=== PATIENT | male | born 1950 | race Asian ===

== ENCOUNTER 2019-06-19 16:05 | Emergency (ER) | payer MEDICAID, OTHER ==
[2019-06-19 16:25] VITALS: BP 129/66
[2019-06-19] MEDS ORDERED: ACETAMINOPHEN 325 MG TAB PO ONE (17:15)
[2019-06-19] MEDS ORDERED: TETANUS-DIPTH-ACEL PERTUSSIS 0.5ML SYRG IM ONE (17:15)
== END 2019-06-19 18:17 | disposition home or self-care (01) ==
LOC: ER 16:13
DX: S00.93XA Contusion of unspecified part of head, initial encounter (principal); I10 Essential (primary) hypertension; W22.8XXA Striking against or struck by other objects, initial encounter; Y93.89 Activity, other specified; Y99.8 Other external cause status; Y92.89 Other specified places as the place of occurrence of the external cause
CPT/HCPCS: 70450; 70486; 90471; 90715

== ENCOUNTER 2019-10-05 11:25 | Inpatient (IN) | payer MEDICAID ==
[~2019-10-05] VITALS: Ht 172.7 cm; Wt 66.4 kg
[2019-10-05] MEDS ORDERED: SODIUM CHLORIDE 0.9% 1,000 ML IV ONE (12:19)
[2019-10-05 13:15] LABS: Basophils # (auto) 0.1 uL; Basophils % (auto) 1.3 % (0.0-2.0); Eosinophils # (auto) 0 uL; Eosinophils % (auto) 0.6 % (0.0-7.0); Hematocrit 47.3 % (41.0-53.0); Hemoglobin 16.2 g/dL (13.5-17.5); Lymphocytes # (auto) 1.6 uL; Lymphocytes % (auto) 25.3 % (10.0-50.0); Mean Corpuscular Hemoglobin 30.8 pg (28.0-32.0); Mean Corpuscular Hgb Conc. 34.1 g/dL (32.0-36.0); Mean Corpuscular Volume 90.2 fL (80.0-100.0); Monocytes # (auto) 0.4 uL; Monocytes % (auto) 7.1 % (0.0-12.0); Neutrophils # (auto) 4.1 uL; Neutrophils % (auto) 65.7 % (37.0-80.0); Nucleated Red Blood Cells % 0.1 %; Platelet Count (auto) 179 10^3/uL (140-450); Red Blood Cells 5.25 10^6/uL (4.5-5.90); Red Cell Distribution Width 13.8 % (11.8-14.3); White Blood Cell 6.2 10^3/uL (4.4-10.8)
[2019-10-05 13:27] LABS: Chloride 106 mmol/L (98-107); Potassium 3.9 mmol/L (3.5-5.1); Sodium 140 mmol/L (136-145)
[2019-10-05 13:35] LABS: Alanine Aminotransferase 18 U/L (16-61); Albumin 3.6 g/dL (3.4-5.0); Alkaline Phosphatase 73 U/L (45-117); Anion Gap 10 (5-15); Aspartate Aminotransferase 10 U/L (15-37); BUN/Creatinine Ratio 35.5; Bilirubin, Total 2.3 mg/dL (0.2-1.0); Blood Urea Nitrogen 33 mg/dL (7-18); Carbon Dioxide 24 mmol/L (21-32); GFR African American 103 mL/min; GFR Non-African American 85 mL/min; Glucose 132 mg/dL (74-106); Magnesium 2.2 mg/dL (1.6-2.6)
[2019-10-05] MEDS ORDERED: NITROGLYCERIN 0.4 MG SL TAB SL PRN (17:30)
[2019-10-05] MEDS ORDERED: SODIUM CHLORIDE 0.9% 500 ML IV ONE (17:30)
[2019-10-05] MEDS ORDERED: CLINIMIX PER PHARMACY 0 ML IV SCH (17:30)
[2019-10-05] MEDS ORDERED: MORPHINE SULF INJ 2 MG/ML SYRINGE 1ML IV PRN (17:30)
--- NOTE | 2019-10-05 17:30 | NUR ---
Telemetry admit from ER RACHANA,IN IDALIA admitted to [facility] unit after SBAR received. Patient oriented to JHONNY ROGERRN primary RN, unit, room, bed, and unit policies regarding patient care and visiting hours. Patient weighed by bedscale and encouraged to call if they need something. All questions and concerns addressed, patient and family verbalized understanding.
[2019-10-05] MEDS ORDERED: IOHEXOL 300 MG/ML 100ML BOTTLE IJ ONE (17:44)
[2019-10-05] MEDS: TAMSULOSIN HYDROCHLORIDE 0.4 MG CAP PO SCH (18:11)
[2019-10-05] MEDS ORDERED: TAMS0.4C36 PO (18:56)
[2019-10-05] MEDS ORDERED: RISP0.5T45 PO (18:56)
[2019-10-05] MEDS ORDERED: DONE5TAB31 PO (18:56)
[2019-10-05 19:07] VITALS: BP 140/63
[2019-10-05] MEDS: risperiDONE 1 MG TAB PO SCH (19:58)
[2019-10-05] MEDS: LORazepam 2MG/ML-1ML VIAL IV PRN (19:59)
[2019-10-05] MEDS ORDERED: DEXTROSE (50%) 50ML SYRG IV SCH (20:00)
[2019-10-05] MEDS: AMINO ACID INFUSION IN D10W 1,000 ML IV NR (20:35)
[2019-10-05] MEDS: SODIUM CHLORIDE 0.9% 1,000 ML IV SCH (20:35)
[2019-10-05 22:00] VITALS: BP 122/76
[2019-10-05] MEDS: FAMOTIDINE (10MG/ML) 2ML VL IV SCH (22:52)
[2019-10-05] MEDS: DONEPEZIL HYDROCHLORIDE 5 MG TAB PO SCH (22:53)
--- NOTE | 2019-10-05 23:36 | NUR ---
PIC TAKEN OF LEFT HIP PRESSURE ULCER
--- NOTE | 2019-10-06 00:18 | NUR ---
IV PULLED OUT IV PULLED OUT BY PT. catheter fully intact. Pressure dressing applied to site.
[2019-10-06] MEDS: ACCU-CHEK COMFORT CURVE STRIP VI SCH ×4 (00:21→18:16)
--- NOTE | 2019-10-06 02:38 | NUR ---
gave report to nevin marie. pt moved to room 246
--- NOTE | 2019-10-06 02:40 | NUR ---
Received patient from VIRGINIA Thorpe. Patient resting with eyes closed. No acute distress noted. Sitter at bedside.
[2019-10-06 05:00] VITALS: BP 134/79
[2019-10-06] MEDS: InsuLIN REG 1unit/0.01ml Soln (100units/ml) SC SCH ×4 (06:00→18:15)
--- NOTE | 2019-10-06 06:54 | NUR ---
Closing Note: No change in patient's status. Patient continues to refuse treatment. Sitter remains at bedside. No acute distress noted.
[2019-10-06 09:00] VITALS: BP 145/90
[2019-10-06 09:32] LABS: Basophils # (auto) 0 uL; Basophils % (auto) 0.9 % (0.0-2.0); Eosinophils # (auto) 0 uL; Eosinophils % (auto) 0.6 % (0.0-7.0); Hematocrit 43.1 % (41.0-53.0); Hemoglobin 15.2 g/dL (13.5-17.5); Lymphocytes # (auto) 0.8 uL; Lymphocytes % (auto) 15.3 % (10.0-50.0); Mean Corpuscular Hemoglobin 31.2 pg (28.0-32.0); Mean Corpuscular Hgb Conc. 35.2 g/dL (32.0-36.0); Mean Corpuscular Volume 88.5 fL (80.0-100.0); Monocytes # (auto) 0.3 uL; Monocytes % (auto) 5.5 % (0.0-12.0); Neutrophils # (auto) 4.2 uL; Neutrophils % (auto) 77.7 % (37.0-80.0); Nucleated Red Blood Cells % 0.1 %; Platelet Count (auto) 150 10^3/uL (140-450); Red Blood Cells 4.87 10^6/uL (4.5-5.90); Red Cell Distribution Width 13.9 % (11.8-14.3); White Blood Cell 5.4 10^3/uL (4.4-10.8)
--- NOTE | 2019-10-06 09:40 | NUR ---
FAMILY AT BEDSIDE. PT COOPERATING WITH CARE AT MOMENT, IV INSERTION TO RFA #20. RESUMED IV FLUIDS PER EMAR. ADMINISTERED MORNING MEDICATIONS. TOLERATED WELL. WOUND CARE NURSE EVALUATED LEFT HIP ABRASION. OPTI FOAM APPLIED.
[2019-10-06 09:49] LABS: Albumin 3.3 g/dL (3.4-5.0); Calcium 8.5 mg/dL (8.5-10.1); Magnesium 2.1 mg/dL (1.6-2.6); Potassium 3.7 mmol/L (3.5-5.1)
[2019-10-06 09:55] LABS: BUN/Creatinine Ratio 38.1; Bilirubin, Total 2.2 mg/dL (0.2-1.0); Phosphorus 3.3 mg/dL (2.5-4.90); Pre Albumin 18.8 mg/dL (20.0-40.0); Total Protein 6.4 g/dL (6.4-8.2)
[2019-10-06] MEDS: risperiDONE 1 MG TAB PO SCH (09:55)
[2019-10-06] MEDS: FAMOTIDINE (10MG/ML) 2ML VL IV SCH ×2 (09:55→22:03)
[2019-10-06] MEDS: SODIUM CHLORIDE 0.9% 1,000 ML IV SCH (09:56)
--- NOTE | 2019-10-06 10:00 | NUR ---
WOUND CARE NOTE: IN TO SEE PATIENT AT THIS TIME PER WOUND CARE CONSULT REQUEST. PATIENT ADMITTED TO [facility] WITH DIAGNOSIS OF GENERAL WEAKNESS. PATIENT HAS CURRENT BRENDA SCORE OF 14. PATIENT IS THIN, WEIGHING 61 KG. HE HAS VERY PROMINENT BONY PROMINENCES NOTED. ORDERED A P500 AIR MATTRESS PREVENTATIVE INTERVENTION. PATIENT TO BE PLACED, PENDING DELIVERY BY BELLA LU. PATIENT IS NOTED TO HAVE INTACT SKIN, NO OPEN WOUNDS NOTED. HE HAS AN OLD COLLAGEN SCAR TO THE LEFT HIP. WOUND PHOTO WAS TAKEN BY BEDSIDE NURSE AT TIME OF ADMIT FOR REFERENCE. NO OTHER SKIN INTEGRITY ISSUES NOTED. RECOMMEND: SKIN/WOUND CARE PLAN, DIETARY CONSULT FOR IMMOBILITY, FREQUENT TURN SCHEDULE Q 2 HOURS, PRN CONDITION PERMITS, WITH PRESSURE REDISTRIBUTION, USING PILLOWS/WEDGES, SPECIALTY AIR MATTRESS, BID/PRN APPLICATION WITH MOISTURE BARRIER CREAM, OPTIFOAM GENTLE SACRAL DRESSING PREVENTATIVE MEASURES, CONTINUED MONITORING BY WOUND CARE TEAM. Addendum: 10/06/19 at 1555 by Dayna Townsend RN Amended: Links added.
[2019-10-06 13:00] VITALS: BP 135/87
[2019-10-06] MEDS ORDERED: LORazepam 2MG/ML-1ML VIAL IV ONE (13:15)
--- NOTE | 2019-10-06 13:55 | NUR ---
Nutrition consult/assessment Notes please see attached link for complete assessment Est. Needs BW 61 [id number] kcal (25-30 kcal/kgBW), 61-73 gms pro (1.0-1.2 gms/kgBW). Will continue to monitor pertinent labs and reassess nutrient need prn Addendum: 10/06/19 at [address] Amended: Links added.
[2019-10-06] MEDS: LORazepam 2MG/ML-1ML VIAL IV PRN ×2 (15:56→23:30)
--- NOTE | 2019-10-06 15:56 | NUR ---
Rounding Covering for Juan David COLEMAN. Patient becoming agitated. Ativan IV as needed administered. Will continue care.
[2019-10-06 16:52] VITALS: BP 123/83
[2019-10-06] MEDS: TAMSULOSIN HYDROCHLORIDE 0.4 MG CAP PO SCH (18:15)
--- NOTE | 2019-10-06 19:05 | NUR ---
AIR MATTRESS DELIVERED AND IN USE AT THIS TIME.
--- NOTE | 2019-10-06 19:15 | NUR ---
RECEIVED PATIENT FROM DAY SHIFT RN. PATIENT RESTING IN BED. NO S/S OF DISTRESS AND PAIN NOTED. SITTER AT BEDSIDE. POC INSTRUCTED AND ENCOURAGED PATIENT TO CALL FOR EDUCATIONAL ASSISTANT TEACHER IF NEEDED. SPECIAL MATTRESS BED IN LOWEST POSITION WITH SIDE RAILS UP X 2. CALL CADET WITHIN REACH. ALARM ON. SITTER AT BEDSIDE FOR SAFETY. CONTINUE TO MONITOR FOR CHANGES Q1H AND PRN. Addendum: 10/06/19 at 2114 by Edinson Novak RN BLUE PHONE USED FOR THIS PATIENT.
[2019-10-06] MEDS ORDERED: CLINIMIX PER PHARMACY IV NR ×6 (20:00)
[2019-10-06] MEDS: AMINO ACID INFUSION IN D10W 1,000 ML IV NR (20:10)
[2019-10-06 22:00] VITALS: BP 133/86
[2019-10-06] MEDS ORDERED: risperiDONE 1 MG TAB PO SCH (22:00)
[2019-10-06] MEDS: DONEPEZIL HYDROCHLORIDE 5 MG TAB PO SCH (22:03)
--- NOTE | 2019-10-06 22:03 | NUR ---
SCHEDULED ORAL MEDICATION GIVEN ORDERED. PATIENT SWALLOWED WELL. NO S/S OF ASPIRATION NOTED. CONTINUE TO MONITOR.
--- NOTE | 2019-10-06 23:45 | NUR ---
PATIENT REALLY AGITATED AND TRYING TO REMOVE IV ACCESS, AND HITTING STAFF. MEDICATED PATIENT ORDERED, MITTENS ON. PATIENT STILL COMBATIVE. CALLED SON JR TO COME. CHARGE NURSE OFE AWARE. CONTINUE TO MONITOR.
[2019-10-07] MEDS: InsuLIN REG 1unit/0.01ml Soln (100units/ml) SC SCH ×4 (00:48→17:21)
[2019-10-07] MEDS: ACCU-CHEK COMFORT CURVE STRIP VI SCH ×4 (00:48→17:21)
--- NOTE | 2019-10-07 01:19 | NUR ---
ACCU-CHECK, BS 141. INSULIN GIVEN ORDERED.CONTINUE TO MONITOR.
[2019-10-07] MEDS: SODIUM CHLORIDE 0.9% 1,000 ML IV SCH ×2 (02:25→17:21)
--- NOTE | 2019-10-07 04:16 | NUR ---
PATIENT SLEEPING. NO S/S OF DISTRESS NOTED. CONTINUE CARE.
--- NOTE | 2019-10-07 05:00 | NUR ---
Patient Vielka, In [place] refused Vital Signs.
--- NOTE | 2019-10-07 05:37 | NUR ---
ACCU-CHECK, BS 141. INSULIN GIVEN ORDERED.CONTINUE TO MONITOR.
[2019-10-07] MEDS: LORazepam 2MG/ML-1ML VIAL IV PRN ×2 (07:11→15:25)
--- NOTE | 2019-10-07 07:17 | NUR ---
PATIENT AGITATED, COMBATIVE, AND TRYING TO REMOVE IV ACCESS, MEDICATED PATIENT ORDERED, CALLED SON JR TO COME IN NOW. CONTINUE TO MONITOR.
[2019-10-07] MEDS: FAMOTIDINE (10MG/ML) 2ML VL IV SCH ×2 (09:53→21:51)
[2019-10-07] MEDS: risperiDONE 1 MG TAB PO SCH (09:53)
[2019-10-07 12:28] LABS: Albumin 2.7 g/dL (3.4-5.0); Calcium 7.7 mg/dL (8.5-10.1); Magnesium 1.9 mg/dL (1.6-2.6); Potassium 3.4 mmol/L (3.5-5.1)
[2019-10-07 12:32] LABS: BUN/Creatinine Ratio 27.1; Bilirubin, Total 1.9 mg/dL (0.2-1.0); Total Protein 5.6 g/dL (6.4-8.2)
[2019-10-07] MEDS ORDERED: POTASSIUM PHOSP 22MEQ(15MMOLE) in NS 100 ML IV ONE (14:45)
--- NOTE | 2019-10-07 15:20 | NUR ---
Spoke with VIRGINIA Fall regarding PT evaluation orders. Pt is currently agitated and is not appropriate for PT eval at this time. We will attempt again tomorrow.
[2019-10-07 16:27] VITALS: BP 127/67
[2019-10-07 17:03] VITALS: BP 137/77
[2019-10-07] MEDS: TAMSULOSIN HYDROCHLORIDE 0.4 MG CAP PO SCH (17:40)
[2019-10-07] MEDS ORDERED: LORazepam 2MG/ML-1ML VIAL IV PRN (19:15)
--- NOTE | 2019-10-07 19:25 | NUR ---
MD EWING AT BEDSIDE
--- NOTE | 2019-10-07 19:30 | NUR ---
RECEIVED PATIENT FROM DAY SHIFT RN. PATIENT RESTING IN BED WITH MITTENS ON. NO S/S OF DISTRESS AND PAIN NOTED. FAMILY AT BEDSIDE. POC INSTRUCTED AND ENCOURAGED PATIENT TO CALL FOR CONSTRUCTION ACCOUNTANT IF NEEDED. SPECIAL MATTRESS BED IN LOWEST POSITION WITH SIDE RAILS UP X 2. CALL CADET WITHIN REACH. ALARM ON. SITTER AT BEDSIDE FOR SAFETY. CONTINUE TO MONITOR FOR CHANGES Q1H AND PRN.
--- NOTE | 2019-10-07 19:45 | NUR ---
PATIENT'S DAUGHTER JELLY CALLED. VERIFIED PASSWORD. ALL QUESTIONS ADDRESSED BY MD EWING. CONTINUE TO MONITOR.
[2019-10-07] MEDS ORDERED: CLINIMIX PER PHARMACY IV NR ×17 (20:00)
--- NOTE | 2019-10-07 21:57 | NUR ---
PATIENT AGITATED AGAIN, FAMILY CALM HIM DOWN. AND HELPED FOR URINAL. PATIENT URINATED WELL. CONTINUE TO MONITOR.
[2019-10-08] MEDS: ACCU-CHEK COMFORT CURVE STRIP VI SCH ×4 (00:24→17:31)
--- NOTE | 2019-10-08 00:24 | NUR ---
ACCU-CHECK, BS 118. NO COVERAGE. CONTINUE TO MONITOR.
--- NOTE | 2019-10-08 02:42 | NUR ---
PATIENT SLEEPING. NO S/S OF DISTRESS NOTED. CONTINUE CARE.
--- NOTE | 2019-10-08 04:30 | NUR ---
CHANGED LINEN FOR PATIENT. PATIENT TOLERATED WELL. CONTINUE CARE.
[2019-10-08] MEDS: InsuLIN REG 1unit/0.01ml Soln (100units/ml) SC SCH ×4 (05:41→17:32)
--- NOTE | 2019-10-08 05:43 | NUR ---
ACCU-CHECK, BS 124. NO COVERAGE. CONTINUE TO MONITOR.
[2019-10-08 06:58] LABS: Albumin 2.8 g/dL (3.4-5.0); Calcium 7.9 mg/dL (8.5-10.1); Magnesium 1.9 mg/dL (1.6-2.6); Potassium 3.3 mmol/L (3.5-5.1)
[2019-10-08 07:00] LABS: Bilirubin, Total 1.7 mg/dL (0.2-1.0); Phosphorus 2.8 mg/dL (2.5-4.90); Total Protein 5.7 g/dL (6.4-8.2)
[2019-10-08 08:38] LABS: Folate (Folic Acid) 13.24 ng/mL (5.38-24)
[2019-10-08] MEDS ORDERED: PPN PER PHARMACY 500 ML IV SCH (10:00)
[2019-10-08] MEDS: risperiDONE 1 MG TAB PO SCH (10:00)
[2019-10-08] MEDS: FAMOTIDINE (10MG/ML) 2ML VL IV SCH ×2 (10:57→20:50)
[2019-10-08] MEDS ORDERED: POTASSIUM CHL 20 Meq TABLET PO ONE (11:30)
[2019-10-08] MEDS ORDERED: MAGNESIUM SULFATE 1GM/100ML 100 ML IV ONE (11:30)
[2019-10-08] MEDS: SODIUM CHLORIDE 0.9% 1,000 ML IV SCH (12:14)
--- NOTE | 2019-10-08 12:30 | NUR ---
RECEIVED REPORT FROM VIRGINIA BRIGHT.
--- NOTE | 2019-10-08 13:18 | NUR ---
TRANSFERRED PATIENT VIA BED TO ROOM 214 A NO SIGNS OF DISTRESS. FAMILY AT BEDSIDE.
[2019-10-08 13:42] VITALS: BP 117/72
[2019-10-08] MEDS: POTASSIUM CHL 20MEQ/100ML 100 ML IV SCH ×2 (14:54→16:28)
--- NOTE | 2019-10-08 16:00 | NUR ---
Nutrition Follow-up Notes Wt.: 66.4 kg as of yesterday. Pt's asleep, no immediate family member at bedside during rounds this morning. Pt's no signs of distress noted earlier, currently NPO with Clinimix @ 42 ml/hr providing 510 kcal, 340 NPCs and 42.5 gms pro. Pt with inadequate PN support d/t low initiation rate delivery of diluted formula aeb current PN infusion meets28% to 33% of est caloric needs and 53% to 70% of est protein needs. Noted pt's to receive tonight TPN @ 59 ml/hr to provide 848 kcal, 60 gms pro, 608 NPCs and 24% Fat and for active GI and Wound consults. Est. Needs BW 61 [id number] kcal (25-30 kcal/kgBW), 61-79 gms pro (1.0-1.2 gms/kgBW). Will continue to monitor pertinent labs and reassess nutrient need prn Labs: Gluc 111 H, K 3.3 L, Ca 7.9 L, Cr 0.60 L, Tot mary 1.7 H, AST 7 L, ALT 15 L, Tpro 5.7 L, Alb 2.8 L, Prealb 18.8 L, Trig 110 wnl Skin: Bart scale 15, mod risk, pt's left hip intact scar per event manager. Pls refer to latest public health teacher's notes for further details. GI: Pt had 1 BM 10/06/19 per event manager. PES: Increased nutrient needs r/t acute/chronic medical condition aeb ALOC, Generalized weakness, mod hypoalbuminemia, NPO with PN support. Altered nutrition related lab values r/t current/chronic medical condition aeb hyperglycemia, hypokalemia, low LFTs, hyperbilirubinemia, hypocalcemia and mod hypoalbuminemia Will continue to monitor NPO status, PN tolerance, skin status, pertinent labs and weight trend. F/u in 2 to 3 days. Rec.: 1.) If still NPO with PN support, consider gradual increase on calories and protein to meet at least 75% of est nutrient needs. 2.) Advance gradually to oral diet when medically appropriate. 3.) Refer pt to CDE/RD for further nutrition education and weight monitoring upon discharge. 4.) Continue current plan of care.
[2019-10-08] MEDS ORDERED: POTASSIUM CHL 20MEQ/100ML 100 ML IV SCH (16:30)
[2019-10-08 16:47] VITALS: BP 122/85
[2019-10-08] MEDS: TAMSULOSIN HYDROCHLORIDE 0.4 MG CAP PO SCH (17:55)
[2019-10-08 18:37] LABS: Prostate Specific Antigen 0.52 ng/mL (0.0-4.0)
[2019-10-08 18:38] LABS: Carcinoembryonic Antigen 2.66 ng/mL (<5.0 OR =)
[2019-10-08] MEDS ORDERED: PPN PER PHARMACY IV NR ×12 (20:00)
--- NOTE | 2019-10-08 20:00 | NUR ---
PATIENT'S RIGHT ARM AND HAND EDEMATOUS, IV DISCONTINUED FROM RFA. IV ACCESS PLACED ON LEFT HAND. PATIENT YELLS WHEN HE NEEDS TO URINATE, AT BEDSIDE TALKING TO PATIENT.
[2019-10-08 22:00] VITALS: BP 139/85
[2019-10-09] MEDS: ACCU-CHEK COMFORT CURVE STRIP VI SCH ×4 (00:43→18:27)
--- NOTE | 2019-10-09 02:42 | NUR ---
OPTI FOAM APPLIED TO SACRUM AND LEFT HIP, PREVENTATIVE.
[2019-10-09] MEDS: SODIUM CHLORIDE 0.9% 1,000 ML IV SCH ×2 (04:50→11:49)
[2019-10-09 05:30] VITALS: BP 119/67
[2019-10-09] MEDS: InsuLIN REG 1unit/0.01ml Soln (100units/ml) SC SCH ×4 (05:53→18:00)
--- NOTE | 2019-10-09 08:24 | NUR ---
OPENING SHIFT NOTE: PATIENT RESTING IN BED. NO SIGNS OF DISTRESS NOTED, LYING SUPINE. CHEST RISE AND FALL EVEN AND UNLABORED. AT BEDSIDE. BED IN LOWEST LOCKED POSITION. PATIENT ABLE TO AWAKEN WITH GENTLE SHAKING AND TAPPING OF SHOULDERS. CALL LIGHT WITHIN REACH, THIS RN ATTEMPTED TO DISCUSS PLAN OF CARE WITH FAMILY. SON JR'S PHONE NUMBER OBTAINED, BY FOR BETTER COMMUNICATION. WILL CONTINUE TO MONITOR.
[2019-10-09 09:00] VITALS: BP 114/67
[2019-10-09] MEDS: risperiDONE 1 MG TAB PO SCH (10:34)
[2019-10-09] MEDS: FAMOTIDINE (10MG/ML) 2ML VL IV SCH ×2 (10:34→21:09)
[2019-10-09 10:50] LABS: Albumin 2.7 g/dL (3.4-5.0); Calcium 7.8 mg/dL (8.5-10.1); Magnesium 2.2 mg/dL (1.6-2.6); Potassium 4.2 mmol/L (3.5-5.1)
[2019-10-09 10:54] LABS: BUN/Creatinine Ratio 25.5; Bilirubin, Total 1.2 mg/dL (0.2-1.0); Phosphorus 3.5 mg/dL (2.5-4.90); Total Protein 5.7 g/dL (6.4-8.2)
--- NOTE | 2019-10-09 12:10 | NUR ---
PATIENT TAKEN DOWN TO MRI.
--- NOTE | 2019-10-09 12:39 | NUR ---
CONSENTS SIGNED FOR LUMBAR PUNCTURE AND PLACED IN THE HARD CHART. TRANSLATION OBTAINED THROUGH DAUGHTER JELLY [phone].
--- NOTE | 2019-10-09 12:54 | NUR ---
PATIENT BROUGHT BACK TO UNIT BY NAYANA FROM [facility], THEN TAKEN BACK DOWN FOR LUMBAR PUNCTURE.
[2019-10-09 13:00] VITALS: BP 128/69
--- NOTE | 2019-10-09 13:00 | NUR ---
PT WENT DOWN FOR LUMBAR PUNCTURE. HOLD P.T. TODAY.
[2019-10-09] MEDS ORDERED: LIDOCAINE 2%HCL (LOCAL ANESTH.) INJ 20ML MDV ONE (13:05)
--- NOTE | 2019-10-09 13:54 | NUR ---
PATIENT BACK FROM RADIOLOGY. RESPIRATIONS EVEN AND UNLABORED. LUNG SOUNDS CLEAR ANTERIORLY. PATIENT ASLEEP. AT BEDSIDE.
[2019-10-09 17:00] VITALS: BP 131/73
--- NOTE | 2019-10-09 17:28 | NUR ---
PHONE CALL TO SON FOR BLADE FILER: PATIENT ALERT/ORIENTED PER NIESHA NORRIS. PATIENT REPORTING PAIN ALL OVER. HOSPITALIST PAGED FOR PAIN MEDICINE AND DIET ORDERS.
[2019-10-09] MEDS ORDERED: MORPHINE SULF INJ 2 MG/ML SYRINGE 1ML IV PRN (17:45)
[2019-10-09] MEDS ORDERED: HYDROcodone-ACET 5/325MG TAB PO PRN (17:45)
[2019-10-09] MEDS: TAMSULOSIN HYDROCHLORIDE 0.4 MG CAP PO SCH (18:00)
--- NOTE | 2019-10-09 18:27 | NUR ---
PATIENT ANGRY SPEAKING LOUDLY IN PORTUGUESE TO AND SON ON THE PHONE, SAYING HE WANTS TO TAKE HIS MEDICATIONS LATER. PATIENT REFUSED FLOMAX AND NORCO. THIS RN ATTEMPTED TO EDUCATED PATIENT, UNSUCCESSFUL.
--- NOTE | 2019-10-09 19:15 | NUR ---
Opening Shift Note Assumed care of patient, patient sleeping, respirations even and unlabored. No S/S of distress/SOB or pain. ,Will continue to monitor for changes Q1hr and PRN. Sitter at bedside for safety precautions
--- NOTE | 2019-10-09 19:49 | NUR ---
CARE ENDORSED TO NOC RN.
[2019-10-09] MEDS ORDERED: PPN PER PHARMACY IV NR ×12 (20:00)
[2019-10-09 21:43] VITALS: BP 125/82
[2019-10-09 23:31] LABS: Protein, CSF 133.6 mg/dL (15-45)
--- NOTE | 2019-10-10 02:00 | NUR ---
Rounds Patient sleeping. No S/S of distress/SOB or pain. Will continue to monitor changes q1hr and PRN.
[2019-10-10 03:06] LABS: CSF White Blood Cells 75 CUMM (0-5)
[2019-10-10 04:49] VITALS: BP 130/80
[2019-10-10] MEDS: InsuLIN REG 1unit/0.01ml Soln (100units/ml) SC SCH ×4 (05:22→17:08)
[2019-10-10] MEDS: ACCU-CHEK COMFORT CURVE STRIP VI SCH ×4 (05:22→17:09)
--- NOTE | 2019-10-10 06:50 | NUR ---
IV insertion IV access obtained, via clean sterile technique by inserting 22 gauge catheter at after 2 attempt(s). IV secured properly. No trauma to site. Patient tolerated well. NOTE:
[2019-10-10] MEDS: SODIUM CHLORIDE 0.9% 1,000 ML IV SCH (06:54)
[2019-10-10 07:34] LABS: Potassium 4.1 mmol/L (3.5-5.1)
[2019-10-10 07:40] LABS: Albumin 2.7 g/dL (3.4-5.0); BUN/Creatinine Ratio 25.9; Bilirubin, Total 1.2 mg/dL (0.2-1.0); Calcium 8.1 mg/dL (8.5-10.1); Magnesium 2.1 mg/dL (1.6-2.6); Phosphorus 3.8 mg/dL (2.5-4.90); Total Protein 5.8 g/dL (6.4-8.2)
--- NOTE | 2019-10-10 08:30 | NUR ---
Opening Shift Note Assumed care of patient, awake and alert. No S/S of distress/SOB or pain. Provide a sitter at bedside, no any injuries noted. Instructed on POC and to call for assist PRN, will continue to monitor for changes Q1hr and PRN.
[2019-10-10 09:00] VITALS: BP 141/78
[2019-10-10] MEDS: risperiDONE 1 MG TAB PO SCH (09:27)
[2019-10-10] MEDS: FAMOTIDINE (10MG/ML) 2ML VL IV SCH ×2 (09:27→23:17)
[2019-10-10] MEDS ORDERED: LORazepam 2MG/ML-1ML VIAL IV ONE (10:15)
--- NOTE | 2019-10-10 11:21 | NUR ---
Called MRI , spoke to Mariluz said per Dr. Sims CT abdomen is good enough , no need for MRI. Will page Dr. Rodriguez.
--- NOTE | 2019-10-10 12:30 | NUR ---
Nutrition Follow-up Notes Wt.: 66.4 kg Pt's asleep, no immediate family member at bedside during rounds this morning. Pt's no signs of distress noted earlier, currently NPO on PN support @ 69 ml/hr providing 1056 kcals and 70 gm proteins 776 kcals from fats. Pt with inadequate PN support d/t low initiation rate delivery of diluted formula aeb current PN infusion meets 56-69% of est caloric needs however meets 88-114% of est protein needs. pt also on regular diet with poor PO of < 50% x 3 per RN doc Est. Needs BW 61 [id number] kcal (25-30 kcal/kgBW), 61-79 gms pro (1.0-1.2 gms/kgBW). Will continue to monitor pertinent labs and reassess nutrient need prn Labs: GLU 124 H, CA 8.1 L, ALB 2.7 L. Skin: Bart scale 15, mod risk, pt's left hip intact scar per electrical calibrator. Pls refer to latest cryptologic support specialist's notes for further details. GI: Pt had 1 BM 10/06/19 per electrical calibrator. PES: Increased nutrient needs r/t acute/chronic medical condition aeb ALOC, Generalized weakness, mod hypoalbuminemia, NPO with PN support. Altered nutrition related lab values r/t current/chronic medical condition aeb hyperglycemia, hypokalemia, low LFTs, hyperbilirubinemia, hypocalcemia and mod hypoalbuminemia Will continue to monitor PO intake, PN tolerance, skin status, pertinent labs and weight trend. F/u in 2 to 3 days. Rec.: 1.) If pt still with poor PO advance PN support, consider gradual increase on calories and protein to meet at least 75% of est nutrient needs. 2.) Advance gradually to oral diet when medically appropriate. 3.) Refer pt to CDE/RD for further nutrition education and weight monitoring upon discharge. 4.) Continue current plan of care.
[2019-10-10 13:00] VITALS: BP 104/63
--- NOTE | 2019-10-10 13:14 | NUR ---
Dr. Rodriguez for MRI status.
--- NOTE | 2019-10-10 14:00 | NUR ---
Patient walks with PT , tolerated well.
[2019-10-10 17:00] VITALS: BP 125/75
[2019-10-10] MEDS: TAMSULOSIN HYDROCHLORIDE 0.4 MG CAP PO SCH (17:40)
[2019-10-10] MEDS ORDERED: PPN PER PHARMACY IV NR ×12 (20:00)
[2019-10-10 22:00] VITALS: BP 130/75
--- NOTE | 2019-10-10 23:00 | NUR ---
Dr Medellin is requesting a Paraneoplastic Antibody Panel Called lab at 2230 regarding have the panel done. Lab stated they already sent CSF to [facility] and that she will call me back. Lab called back at 2300 stating that they called [facility] and they are going to add the panel to the testing they are already doing. However, the previous testing has priority and if they do not have enough CSF another sample will have to be sent.
[2019-10-11] MEDS: InsuLIN REG 1unit/0.01ml Soln (100units/ml) SC SCH ×4 (00:10→17:40)
[2019-10-11] MEDS: ACCU-CHEK COMFORT CURVE STRIP VI SCH ×4 (00:10→17:40)
[2019-10-11] MEDS: SODIUM CHLORIDE 0.9% 1,000 ML IV SCH ×2 (02:21→21:20)
[2019-10-11 04:08] LABS: Serum Albumin 3.2 g/dL (3.5-4.8)
[2019-10-11 05:00] VITALS: BP 127/78
[2019-10-11 06:25] LABS: Basophils # (auto) 0 uL; Basophils % (auto) 0.4 % (0.0-2.0); Eosinophils # (auto) 0.1 uL; Eosinophils % (auto) 2.1 % (0.0-7.0); Hematocrit 39.6 % (41.0-53.0); Hemoglobin 13.7 g/dL (13.5-17.5); Lymphocytes # (auto) 1.2 uL; Lymphocytes % (auto) 28.3 % (10.0-50.0); Mean Corpuscular Hemoglobin 30.9 pg (28.0-32.0); Mean Corpuscular Hgb Conc. 34.6 g/dL (32.0-36.0); Mean Corpuscular Volume 89.3 fL (80.0-100.0); Monocytes # (auto) 0.4 uL; Monocytes % (auto) 9.6 % (0.0-12.0); Neutrophils # (auto) 2.6 uL; Neutrophils % (auto) 59.6 % (37.0-80.0); Nucleated Red Blood Cells % 0.1 %; Platelet Count (auto) 153 10^3/uL (140-450); Red Blood Cells 4.44 10^6/uL (4.5-5.90); Red Cell Distribution Width 13.8 % (11.8-14.3); White Blood Cell 4.4 10^3/uL (4.4-10.8)
[2019-10-11 06:51] LABS: Albumin 2.6 g/dL (3.4-5.0); Magnesium 2.1 mg/dL (1.6-2.6); Potassium 3.9 mmol/L (3.5-5.1)
[2019-10-11 06:55] LABS: BUN/Creatinine Ratio 32.7; Bilirubin, Total 0.9 mg/dL (0.2-1.0); Phosphorus 3.9 mg/dL (2.5-4.90); Total Protein 5.3 g/dL (6.4-8.2)
[2019-10-11 08:06] LABS: Immunoglobulin G, Serum 864 mg/dL (700-1600)
[2019-10-11 08:51] VITALS: BP 128/70
[2019-10-11] MEDS: risperiDONE 1 MG TAB PO SCH (09:22)
[2019-10-11] MEDS: FAMOTIDINE (10MG/ML) 2ML VL IV SCH ×2 (09:22→21:20)
--- NOTE | 2019-10-11 10:38 | NUR ---
Dr. Rodriguez at bedside spoke with his son (JR) on the phone for updating plan of care.
--- NOTE | 2019-10-11 10:39 | NUR ---
Spoke to Dr. Rodriguez regarding Last BM 10/06, received new order, noted and carried it out.
[2019-10-11] MEDS: LACTULOSE 20Gm/30ML SOLN PO PRN ×2 (12:00→14:02)
[2019-10-11 13:00] VITALS: BP 135/79
[2019-10-11] MEDS ORDERED: GADOTERIDOL 279.3mg/mL 20ml Vial IV ONE (13:01)
--- NOTE | 2019-10-11 13:25 | NUR ---
Patient refused MRI, will try tomorrow morning. Dr. Rodriguez made aware.
--- NOTE | 2019-10-11 16:23 | NUR ---
assessment Patient is a 69 year old male who is confused. Prior to admission patient lived home with family and functioned independently 1 month prior to admission. Per patients son Timothy patient will return home to his prior living arrangements post discharge and he will transport him home. Timothy informed me patient was very independent and took care of his whole family up until 1 month ago when this new onset confusion happened. Per Timothy he will be moving in with his parents at the end of this month. Per Timothy patients PCP is Dr Street. Patient has a cane, fww, and a wheelchair for home use, but never needed to use it. Patient will benefit from home health nursing and safety eval on discharge. I informed Timothy he has a right to speak to a social work faculty member regarding all care. I informed Timothy he has a right to participate in any and all discharge planning. Patient does not have a POA and advanced directive. I have offered Timothy information on POA and advanced directives. I informed Timothy the advantages and benefits of having an Advanced Directive. Timothy verbalized understanding and agreed to discharge plan home. Addendum: 10/11/19 at 1630 by Lauren ORTIZ Amended: Links added.
--- NOTE | 2019-10-11 16:30 | NUR ---
Dr. Luciano at bedside discussed over the phone with his son and daughter about bronchoscopy, they want to make a decision later.
--- NOTE | 2019-10-11 16:40 | NUR ---
Per Dr. Edgar , no need for Isolation.
[2019-10-11 16:51] VITALS: BP 118/62
[2019-10-11] MEDS: TAMSULOSIN HYDROCHLORIDE 0.4 MG CAP PO SCH (17:52)
[2019-10-11] MEDS ORDERED: PPN PER PHARMACY IV NR ×12 (20:00)
--- NOTE | 2019-10-11 20:20 | NUR ---
RECEIVED PATIENT IN BED, AAOX2. CONFUSED TO PLACE AND SITUATION. ORIENTATION GIVEN. WILL REINFORCE ORIENTATION AND POCS. IS IN THE ROOM. INTRODUCED MYSELF TO THE PATIENT AND . IS VERY INVOLVED IN PATIENT'S CARE. PATIENT IS ABLE TO TURN FROM SIDE TO SIDE. MILD BLE WEAKNESS NOTED. PATIENT IS RESTLESS, BUT PLEASANT FOR NOW. NO DISTRESS NOTED. AFEBRILE. NO SOB NOTED. POCS DISCUSSED WITH SON ON THE PHONE AND SHOWED UNDERSTANDING. BED KEPT ON LOWEST POSITION. SIDE RAILS UP. CALL LIGHT/TABLE IN REACH. KEPT COMFORTABLE. WILL KEEP AN EYE ON PATIENT.
[2019-10-11] MEDS: DOCUSATE SOD 100 MG CAP PO SCH (21:20)
[2019-10-12] MEDS: HALOPERIDOL LACTATE 5 MG/ML INJ VIAL IM PRN ×2 (00:03→08:04)
[2019-10-12] MEDS: InsuLIN REG 1unit/0.01ml Soln (100units/ml) SC SCH ×4 (06:00→16:58)
[2019-10-12] MEDS: ACCU-CHEK COMFORT CURVE STRIP VI SCH ×4 (06:00→16:58)
--- NOTE | 2019-10-12 06:13 | NUR ---
ON BED, ASLEEP. NO CHANGE IN CONDITION NOTED. FOR MORE CARE AND MANAGEMENT.
[2019-10-12 07:09] LABS: Potassium 4.2 mmol/L (3.5-5.1)
[2019-10-12 07:22] LABS: Albumin 2.8 g/dL (3.4-5.0); BUN/Creatinine Ratio 27.5; Bilirubin, Total 0.9 mg/dL (0.2-1.0); Calcium 7.7 mg/dL (8.5-10.1); Magnesium 2.4 mg/dL (1.6-2.6); Phosphorus 3.4 mg/dL (2.5-4.90); Total Protein 5.5 g/dL (6.4-8.2)
[2019-10-12] MEDS ORDERED: GADOTERIDOL 279.3mg/mL 20ml Vial IV ONE (08:10)
--- NOTE | 2019-10-12 08:10 | NUR ---
Patient left to MRI.
[2019-10-12 09:31] VITALS: BP 154/66
[2019-10-12] MEDS: FAMOTIDINE (10MG/ML) 2ML VL IV SCH ×2 (09:57→20:58)
[2019-10-12] MEDS: DOCUSATE SOD 100 MG CAP PO SCH ×2 (09:57→20:57)
[2019-10-12] MEDS: risperiDONE 1 MG TAB PO SCH (09:57)
[2019-10-12 10:09] LABS: Albumin, CSF 83 mg/dL (11-48); CSF IgG Index 0.6 (0.0-0.7); CSF/Serum Alb. Index 26 (0-8); IgG, Quant, CSF 13.5 mg/dL (0.0-8.6); IgG, Syn Rate,CSF 15.7 mg/day (-9.9 TO +3.3); IgG/Alb Ratio, CSF 0.16 (0.00-0.25)
--- NOTE | 2019-10-12 10:44 | NUR ---
Called lab regarding TB (QFT) result pending, per lab will be resulted in 3 days to 1 week, dr. Rodriguez notified.
--- NOTE | 2019-10-12 10:45 | NUR ---
PT Hold PT as per VIRGINIA Hatch, patient just received medication. Addendum: 10/12/19 at 1046 by CANDI MORENO PTT Amended: Links added.
[2019-10-12 13:50] VITALS: BP 148/77
--- NOTE | 2019-10-12 14:28 | NUR ---
Nutrition Follow-up Notes Wt.: 66.4 kg based on bed scale as of 10/08/19 Pt's asleep, with sitter and immediate family member at bedside during rounds this morning. However unable to speak Kazakh, was able to speak to pt's son via phone. 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 Pt used to have good appetite, eat meals regularly, NKFA and not into any special diets captain/check airman. Pt's on Regular diet with inadequate PO intake aeb <50% ave. consumed meals (x3) in last 2 days d/t pt refused, per nursing. Pt's also on TPN @ 79 ml/hr providing 1264 kcal, 80 gm proteins, 944 NPCs and 32% Fat. Pt with inadequate PN support d/t mod initiation rate delivery of concentrated formula aeb current PN infusion meets 60% to 72% of est caloric needs however meets 82% to 114% of est protein needs. Discussed importance/benefits of PN support r/t current medical condition and he verbalized understanding. Est. Needs reassessed based on IBW 70 [id number] kcal (25-30 kcal/kgIBW), 70-98 gms pro (1.0-1.4 gms/kgIBW). Will continue to monitor pertinent labs and reassess nutrient need prn Labs: Gluc 131 H, Ca 7.7 L, Cr 0.51 L, AST 13 L, Tpro 5.5 L, Alb 2.8 L; Prealb 18.8 L, Trig 110 wnl. Skin: Bart scale 15, mod risk, pt's left hip intact scar per digital program manager. Pls refer to latest undergraduate internship's notes for further details. GI: Pt had 1 BM 10/06/19 per digital program manager. PES: Increased nutrient needs r/t acute/chronic medical condition aeb ALOC, Generalized weakness, mod hypoalbuminemia, NPO with PN support. Altered nutrition related lab values r/t current/chronic medical condition aeb hyperglycemia, hypokalemia, low LFTs, hyperbilirubinemia, hypocalcemia and mod hypoalbuminemia Will continue to monitor PO intake, PN tolerance, skin status, pertinent labs and weight trend. F/u in 2 to 3 days. Rec.: 1.) Continue close supervision and feeding assistance prn with meals. 2.) If pt still with inadequate PO intake (<75%), consider Ensure Enlive 1 carton BID and continue PN support with gradual increase on calories to meet at least 75% of est nutrient needs. 3.) Consider to continue monitoring and recording of pt's weight based on bed scale. 4.) Refer pt to RD for further nutrition education and weight monitoring upon discharge. 5.) Continue current plan of care.
--- NOTE | 2019-10-12 15:53 | NUR ---
NURSING REPORTS NO DIFFICULTY WITH SWALLOW OF REGULAR TEXTURE AND THIN LIQUIDS, ALTHOUGH POOR APPETITE. NO SWALLOW EVALUATION AT THIS TIME.
[2019-10-12 16:30] VITALS: BP 127/79
[2019-10-12] MEDS: TAMSULOSIN HYDROCHLORIDE 0.4 MG CAP PO SCH (17:08)
[2019-10-12] MEDS: LACTULOSE 20Gm/30ML SOLN PO PRN (17:08)
--- NOTE | 2019-10-12 19:45 | NUR ---
Opening Shift Note Assumed care of patient, awake and alert and orientated times 1. No S/S of distress/SOB or pain. Instructed on POC and to call for assist PRN, will continue to monitor for changes Q1hr and PRN. sitter at bedside at bedside. bed in low position and call light within reach.
[2019-10-12] MEDS ORDERED: PPN PER PHARMACY IV NR ×13 (20:00)
[2019-10-12 21:00] VITALS: BP 140/91
[2019-10-13] MEDS: LORazepam 2MG/ML-1ML VIAL IV PRN (00:32)
[2019-10-13 05:00] VITALS: BP 137/86
[2019-10-13] MEDS: InsuLIN REG 1unit/0.01ml Soln (100units/ml) SC SCH ×5 (06:00→23:29)
[2019-10-13 06:18] LABS: Calcium 8.2 mg/dL (8.5-10.1); Potassium 4.1 mmol/L (3.5-5.1)
[2019-10-13] MEDS: ACCU-CHEK COMFORT CURVE STRIP VI SCH ×5 (06:22→23:30)
[2019-10-13 06:26] LABS: Albumin 2.9 g/dL (3.4-5.0); BUN/Creatinine Ratio 27.8; Bilirubin, Total 0.9 mg/dL (0.2-1.0); Magnesium 2.3 mg/dL (1.6-2.6); Pre Albumin 23.7 mg/dL (20.0-40.0); Total Protein 5.9 g/dL (6.4-8.2)
--- NOTE | 2019-10-13 07:23 | NUR ---
SBAR report given to dayshift rn. patient denies sob or pain. sitter at bedside and at bedside
--- NOTE | 2019-10-13 07:30 | NUR ---
Opening Shift Note Assumed care of patient, awake, confused. No S/S of distress/SOB or pain. Instructed on POC and to call for assist PRN, will continue to monitor for changes Q1hr and PRN. at bedside. Sitter at bedside.
[2019-10-13 09:46] VITALS: BP 119/73
--- NOTE | 2019-10-13 10:30 | NUR ---
Patient took AM meds with assist from . Patient occasionally yells at . Sitter at bedside. Will continue to monitor.
[2019-10-13] MEDS: risperiDONE 1 MG TAB PO SCH (11:25)
[2019-10-13] MEDS: DOCUSATE SOD 100 MG CAP PO SCH ×2 (11:25→21:42)
[2019-10-13] MEDS: FAMOTIDINE (10MG/ML) 2ML VL IV SCH ×2 (11:25→21:42)
--- NOTE | 2019-10-13 11:44 | NUR ---
WOUND CARE NOTE: Wound care in to see patient for skin integrity monitoring. Patient continue resting on air bed in Rm. 214A. Patient's eyes are closed, respirations even and unlabored. Patient appears to be in no pain using Meléndez Eckert Faces Pain Scale. His Bart score is 14. Skin assessment done with the assistance of covering sitter at bedside. NO open wound noted other than intact pink collagen scar tissue to L hip and brown pigmented skin to lower buttocks. Patient is receiving BID/PRN cleaning and application of Barrier cream to sacral, buttock sand perineum as preventative per MD order. Patient tolerated well.Sitter at bedside. RECOMMENDATION: Continuation of all wound care orders prescribed by MD, continue with skin/wound plan of care, continue monitoring by wound care while patient is hospitalized. Addendum: 10/13/19 at 1801 by Shanell Keane RN Amended: Links added.
--- NOTE | 2019-10-13 13:00 | NUR ---
assisting the patient with his lunch. Patient refusing, yelling at . Will continue to monitor.
[2019-10-13 13:46] VITALS: BP 129/76
--- NOTE | 2019-10-13 14:00 | NUR ---
Patient's son at bedside. Assisted patient to eat. Will continue to monitor.
[2019-10-13 16:35] VITALS: BP 141/86
[2019-10-13] MEDS: TAMSULOSIN HYDROCHLORIDE 0.4 MG CAP PO SCH (18:01)
[2019-10-13] MEDS ORDERED: PPN PER PHARMACY IV NR ×13 (20:00)
--- NOTE | 2019-10-13 20:00 | NUR ---
Opening Shift Note Assumed care of patient, awake and alert. No S/S of distress/SOB or pain. Instructed on POC and to call for assist PRN, will continue to monitor for changes Q1hr and PRN.sitter at bedside.
[2019-10-13 22:00] VITALS: BP 122/76
[2019-10-14] MEDS: LORazepam 2MG/ML-1ML VIAL IV PRN (02:59)
[2019-10-14 05:00] VITALS: BP 127/76
[2019-10-14] MEDS: ACCU-CHEK COMFORT CURVE STRIP VI SCH ×3 (05:38→17:30)
[2019-10-14] MEDS: InsuLIN REG 1unit/0.01ml Soln (100units/ml) SC SCH ×3 (05:38→17:30)
--- NOTE | 2019-10-14 07:03 | NUR ---
Report given to Pamela Ivey, patient is not combative the whole night, just tried to get out of the bed once.
--- NOTE | 2019-10-14 07:30 | NUR ---
Opening Shift Note Assumed care of patient, awake and alert. No S/S of distress/SOB or pain. Instructed on POC and to call for assist PRN, will continue to monitor for changes Q1hr and PRN.
[2019-10-14 08:27] LABS: Potassium 4.1 mmol/L (3.5-5.1)
[2019-10-14 08:32] LABS: Albumin 3.2 g/dL (3.4-5.0); BUN/Creatinine Ratio 32.1; Bilirubin, Total 0.8 mg/dL (0.2-1.0); Calcium 8.4 mg/dL (8.5-10.1); Magnesium 2.2 mg/dL (1.6-2.6); Phosphorus 4.5 mg/dL (2.5-4.90); Total Protein 6.3 g/dL (6.4-8.2)
[2019-10-14 09:00] VITALS: BP 104/68
[2019-10-14] MEDS: DOCUSATE SOD 100 MG CAP PO SCH ×2 (10:10→21:49)
[2019-10-14] MEDS: FAMOTIDINE (10MG/ML) 2ML VL IV SCH ×2 (10:10→21:50)
[2019-10-14] MEDS: risperiDONE 1 MG TAB PO SCH (10:10)
--- NOTE | 2019-10-14 11:00 | NUR ---
Patient is resting quietly. at bedside. Sitter at bedside. Will continue to monitor.
--- NOTE | 2019-10-14 12:39 | NUR ---
PT Patient refused to be OOB during PT visit. Addendum: 10/14/19 at 1241 by CANDI MORENO PTT Amended: Links added.
--- NOTE | 2019-10-14 12:58 | NUR ---
Nutrition Consult and Follow-up Notes Wt.: 66.4 kg based on bed scale as of 10/08/19 Pt's with sitter and immediate family members at bedside talking to MD during rounds this morning. Pt's no signs of distress noted earlier, currently on Regular diet with inadequate PO intake aeb <50% ave. consumed meals (x3) in last 2 days d/t pt refused, per nursing. Pt remains on TPN @ 82 ml/hr providing 1364 kcal, 80 gm proteins, 1044 NPCs and 37% Fat. Pt with fair PN support d/t mod initiation rate delivery of concentrated formula aeb current PN infusion meets 64% to 78% of est caloric needs however meets 88% to 114% of est protein needs. Noted pt's to receive tonight another TPN at same rate and nutrient concentration. Est. Needs reassessed based on IBW 70 [id number] kcal (25-30 kcal/kgIBW), 70-91 gms pro (1.0-1.3 gms/kgIBW). Will continue to monitor pertinent labs and reassess nutrient need prn Labs: Gluc 115 H, Ca 8.4 L, Cr 0.53 L, AST 11 L, Tpro 6.3 L, Alb 3.2 L; Prealb 23.7 wnl, Trig 123 wnl. Skin: Bart scale 15, mod risk, pt's left hip skin intact per scanning tech. Pls refer to latest personal property assessor's notes for further details. GI: Pt had 1 BM 10/06/19 per scanning tech. PES: Increased nutrient needs r/t acute/chronic medical condition aeb ALOC, Generalized weakness, mod hypoalbuminemia, NPO with PN support. Altered nutrition related lab values r/t current/chronic medical condition aeb hyperglycemia, hypokalemia, low LFTs, hyperbilirubinemia, hypocalcemia and mod hypoalbuminemia Will continue to monitor PO intake, PN tolerance, skin status, pertinent labs and weight trend. F/u in 2 to 3 days. Rec.: 1.) If still with PN support, consider to maintain 35% or less on Fat concentration of TPN. 2.) Continue close supervision and feeding assistance prn with meals. 3.) If pt still with inadequate PO intake (<75%), consider Ensure Enlive 1 carton BID and continue PN support with gradual increase on calories to meet at least 75% of est nutrient needs. 4.) Consider to continue monitoring and recording of pt's weight based on bed scale. 5.) If pt's PO intake adequate (>75%), consider gradual tapering down of PN support. 6.) Refer pt to RD for further nutrition education and weight monitoring upon discharge. 7.) Continue current plan of care. Thank you for this consult
[2019-10-14 13:00] VITALS: BP 110/70
[2019-10-14 17:00] VITALS: BP 106/71
[2019-10-14] MEDS: TAMSULOSIN HYDROCHLORIDE 0.4 MG CAP PO SCH (17:35)
--- NOTE | 2019-10-14 18:46 | NUR ---
No change. Report to NOC shift.
[2019-10-14] MEDS ORDERED: PPN PER PHARMACY IV NR ×12 (20:00)
--- NOTE | 2019-10-14 20:00 | NUR ---
Opening Shift Note Assumed care of patient, awake and alert. No S/S of distress/SOB or pain. Instructed on POC and to call for assist PRN, will continue to monitor for changes Q1hr and PRN. at bedside feeding her .
[2019-10-14 22:00] VITALS: BP 110/70
--- NOTE | 2019-10-14 22:30 | NUR ---
IV removal IV DC'd with clean sterile technique, catheter fully intact. Pressure dressing applied to site. Patient tolerated well. NOTE: I.v.line is .
--- NOTE | 2019-10-14 22:30 | NUR ---
IV insertion IV access obtained, via clean sterile technique by inserting 20 gauge catheter at left hand after attempt. IV secured properly. No trauma to site. Patient tolerated well.
[2019-10-15] MEDS: InsuLIN REG 1unit/0.01ml Soln (100units/ml) SC SCH ×3 (00:20→12:00)
[2019-10-15] MEDS: ACCU-CHEK COMFORT CURVE STRIP VI SCH ×3 (00:20→12:00)
[2019-10-15 05:00] VITALS: BP 122/74
[2019-10-15 06:31] LABS: Basophils # (auto) 0 uL; Basophils % (auto) 0.8 % (0.0-2.0); Eosinophils # (auto) 0.1 uL; Hemoglobin 13.8 g/dL (13.5-17.5); Lymphocytes # (auto) 1.2 uL; Lymphocytes % (auto) 21.7 % (10.0-50.0); Mean Corpuscular Hemoglobin 30.5 pg (28.0-32.0); Mean Corpuscular Hgb Conc. 34.6 g/dL (32.0-36.0); Mean Corpuscular Volume 88.1 fL (80.0-100.0); Monocytes # (auto) 0.6 uL; Monocytes % (auto) 11.1 % (0.0-12.0); Neutrophils # (auto) 3.7 uL; Neutrophils % (auto) 64.4 % (37.0-80.0); Platelet Count (auto) 179 10^3/uL (140-450); Red Blood Cells 4.54 10^6/uL (4.5-5.90); White Blood Cell 5.7 10^3/uL (4.4-10.8)
[2019-10-15 06:52] LABS: Calcium 8.4 mg/dL (8.5-10.1); Magnesium 2.2 mg/dL (1.6-2.6); Potassium 4.1 mmol/L (3.5-5.1)
[2019-10-15 06:57] LABS: Bilirubin, Total 0.7 mg/dL (0.2-1.0); Phosphorus 4.3 mg/dL (2.5-4.90); Total Protein 5.9 g/dL (6.4-8.2)
--- NOTE | 2019-10-15 07:22 | NUR ---
Report given to Pamela Larsen, patient is resting no distress, family at bedside.
[2019-10-15 09:00] VITALS: BP 130/79
--- NOTE | 2019-10-15 09:46 | NUR ---
PT TAKES IN 5% OF BREAKFAST WITH ENCOURAGEMENT AND LICEA PT IN HALLS WITH AND IV POLE. TOLERATES WELL.
[2019-10-15] MEDS: DOCUSATE SOD 100 MG CAP PO SCH (11:00)
[2019-10-15] MEDS: risperiDONE 1 MG TAB PO SCH (11:00)
[2019-10-15] MEDS: FAMOTIDINE (10MG/ML) 2ML VL IV SCH (11:00)
--- NOTE | 2019-10-15 12:10 | NUR ---
EATING CHICKEN FINGERS BROUGHT BY FROM [place]. IV SITE TO LEFT HAND CHECKED OFTEN PATENT AND BENIGN.
[2019-10-15 13:00] VITALS: BP 118/77
--- NOTE | 2019-10-15 13:26 | NUR ---
FELLOW RN ATTENDS MD WHEN DR. LEVY ROUNDING ON PT. RELAYS THAT DR. LEVY HAS GIVEN PT'S A COPY OF THE TESTS AND EXPLAINED DISCHARGE TODAY. DR. LEYV PAGED. SHE IS ON NSG STATION CLARIFIES SHE SPOKE WITH PT'S SON ALSO TO EXPLAIN DC HOME. CLARIFIES OK TO DC PPN.
--- NOTE | 2019-10-15 13:52 | NUR ---
CONTACTED PHARMACIST. ADVISED TO TAPER PPN DECREASING BY 10CC EACH HOUR UNTIL BAG EXPIRES OR CC/HR COMPLETED.
--- NOTE | 2019-10-15 13:54 | NUR ---
PT'S DAUGHTER JELLY CALLS REQUESTS GAUGE INSPECTOR TO ASSESS FOR HOME ASSISTANCE TO MONITOR PT FOR NEEDS AT HOME.
[2019-10-15 17:00] VITALS: BP 133/75
--- NOTE | 2019-10-15 18:35 | NUR ---
PPN DECREASED HOURLY. PT'S SON JR ARRIVES TO DRIVE HIS PARENTS HOME AND REMAINS AT BEDSIDE FOR PPN TO DECREASE TO DISCONTINUE. DISCHARGE INSTRUCTIONS REVIEWED WITH JR. JR SHARES THAT HE HAS CONTACT NUMBER FOR DR. EWING AND DR. GONZALEZ. IV DISCONTINUED. PT DRESSED INTO CLOTHING AND WALKS IN CAGE WITH SON AND . AGREED TO STAY UNTIL REPEAT FSBS TAKEN.
[2019-10-15] MEDS ORDERED: PPN PER PHARMACY IV NR ×12 (20:00)
[2019-10-17 14:06] LABS: Cryptococcus Antigen CSF Negative (Negative)
== END 2019-10-15 19:00 | disposition home or self-care (01) | DRG 282 ==
LOC: ER 11:25 → OVERFLOW 11:26 → CENTRAL 18:35 → EAST 10-06 03:01 → CENTRAL 10-08 13:05
PROVIDERS: ADMIT Nurse Practitioner Acute Care; ATTEND Internal Medicine
PROC: 009U3ZX Drainage of Spinal Canal, Percutaneous Approach, Diagnostic (ICD-10-PCS; principal; 2019-10-09)
PROC: B01B1ZZ Fluoroscopy of Spinal Cord using Low Osmolar Contrast (ICD-10-PCS; 2019-10-09)
DX: K86.2 Cyst of pancreas (principal); E43 Unspecified severe protein-calorie malnutrition; G93.1 Anoxic brain damage, not elsewhere classified; G93.41 Metabolic encephalopathy; F03.90 Unspecified dementia, unspecified severity, without behavioral disturbance, psychotic disturbance, mood disturbance, and anxiety; K76.0 Fatty (change of) liver, not elsewhere classified; E86.0 Dehydration; K76.89 Other specified diseases of liver; N40.0 Benign prostatic hyperplasia without lower urinary tract symptoms; H91.90 Unspecified hearing loss, unspecified ear; F29 Unspecified psychosis not due to a substance or known physiological condition; J47.9 Bronchiectasis, uncomplicated; F17.200 Nicotine dependence, unspecified, uncomplicated; I10 Essential (primary) hypertension; F32.9 Major depressive disorder, single episode, unspecified; R91.1 Solitary pulmonary nodule; Z82.0 Family history of epilepsy and other diseases of the nervous system; Z86.11 Personal history of tuberculosis; Z68.22 Body mass index [BMI] 22.0-22.9, adult
CPT/HCPCS: 36415; 62272; 70450; 70551; 71045; 71250; 71260; 74177; 74181; 74183; 76000; 76870; 80053; 82040; 82042; 82164; 82306; 82378; 82607; 82746; 82784; 82945; 82962; 83036; 83735; 84100; 84153; 84157; 84425; 84443; 84478; 84484; 85025; 85652; 86301; 86304; 86592; 86703; 87070; 87205; 87529; 87899; 88108; 89051; 93005; 95819; 96361; 96365; 96366; 97116; 97163; 97530; G0378; J1815; J3480; J3490; J7131